=== PATIENT | female | born 1975 | race African-American/Black ===

== ENCOUNTER → 2019-12-18 | Outpatient (CLI) | payer OTHER ==
[~2019-12-18] MED LIST: GLYB5TAB5 PO; IBUP600T26 PO; MAPA500T17 PO; PRENTAB66 PO
--- NOTE | 2019-12-18 11:26 | REP ---
Clinical: Pelvic pain. Technique: Transabdominal pelvic ultrasound with color Doppler evaluation of the ovaries. Findings: Bladder is normal and measures 13.7 x 9.7 x 8.5 cm. Anteverted uterus measures 12.6 x 5.4 x 6.4 cm. Endometrial complex measures 6.3 mm thickness. A 1.4 x 1.0 x 1.5 cm anterofundal intramural fibroid is identified along with 1.1 x 1.0 x 0.5 cm posterior intramural fibroid. Bilateral ovaries are normal in appearance and vascularity without torsion. Right ovary measures 4.2 x 1.4 x 1.6 cm (RI 0.64). Left ovary measures 2.3 x 1.0 x 3.0 cm (RI 0.50). No pelvic fluid or adnexal mass lesion. Impression: Anteverted uterus with two intramural fibroids noted. Normal appearance of the bilateral ovaries. Electronically Signed by Theron Gooden MD 12/18/2019 11:17 A
== END ==
LOC: M RAD 10:24
PROVIDERS: ATTEND Obstetrics & Gynecology
DX: R10.2 Pelvic and perineal pain (principal); D25.1 Intramural leiomyoma of uterus; N85.4 Malposition of uterus